=== PATIENT | male | born 1995 | race African-American/Black ===

== ENCOUNTER 2017-06-19 20:10 | Emergency (ER) | payer BC, OTHER ==
--- NOTE | ~2017-06-19 | CR20 ---
[facility] A Service of [facility] & [facility] RADIOLOGY TEXT RESULTS PATIENT: KAREN HILL LOCATION: [place] : [birth year] UNIT #: [id number] AGE: [address]: Ann Marie Curtis APRN SEX: M ORDER DR: [id number] [facility] [address] [place], [place] [address] [id number] MR#: [id number] Acc #: [id number] NAME: KAREN HILL : 1995 SEX: M STUDY DATE/TIME: 06/19/2017 20:45 UNIT: [facility] ROOM: STUDY DESCRIPTION: CR Ankle Min 3 Views Lt Attending Physician: Ann Marie Curtis A.P.R.N. Ordering Physician: Ann Marie Curtis A.P.R.N. Primary Care Physician: Pb Quintero M.D. MEDICAL IMAGING REPORT This report is preliminary unless electronic signature is present EXAM Left ankle 3 views 06/19/2017 HISTORY Left ankle pain when walking for 2 weeks. Wrestling injury 2 week ago. FINDINGS AP, lateral, and oblique projections of the ankle show satisfactory integrity of the joint mortise with a smooth articular surface. There is no identifiable fracture, dislocation, or radiopaque foreign body. IMPRESSION Normal ankle. Dictated by... Keith Morrow M.D. THIS IS AN ELECTRONICALLY VERIFIED REPORT Keith Morrow M.D. at 06/20/2017 2:15 PM MARIAA/troy TD: 06/20/2017 11:04 JOB #: [id number] MEDICAL IMAGING REPORT Page 1 of 1 COPY
== END 2017-06-19 22:11 | disposition home or self-care (01) ==
LOC: CED 20:10 → CFTX 20:10
DX: S93.402A Sprain of unspecified ligament of left ankle, initial encounter (principal); F32.9 Major depressive disorder, single episode, unspecified; Z88.0 Allergy status to penicillin; F17.200 Nicotine dependence, unspecified, uncomplicated; X50.1XXA Overexertion from prolonged static or awkward postures, initial encounter; Y92.009 Unspecified place in unspecified non-institutional (private) residence as the place of occurrence of the external cause
CPT/HCPCS: 29405; 73610; 99283

== ENCOUNTER 2017-07-15 16:09 | Emergency (ER) | payer BC, OTHER ==
[~2017-07-15] VITALS: Ht 162.6 cm; Wt 102.0 kg
[2017-07-15 17:21] LABS: BUN/CREATININE RATIO 17.77; CALCIUM SERUM 10.1 mg/dL (8.4-10.2); CREATININE SERUM 0.9 mg/dL (0.6-1.4); POTASSIUM 3.6 mmol/L (3.5-5.1)
== END 2017-07-15 17:54 | disposition home or self-care (01) ==
LOC: CED 16:09
PROVIDERS: Emergency Medicine
DX: Z71.1 Person with feared health complaint in whom no diagnosis is made (principal); Z88.0 Allergy status to penicillin
CPT/HCPCS: 80048; 99283